=== PATIENT | female | born 1970 | race Caucasian/White ===

== ENCOUNTER 2017-09-08 21:30 | Emergency (ER) | payer OTHER ==
[~2017-09-08] VITALS: Ht 167.6 cm; Wt 77.3 kg
[~2017-09-08 21:30] MED LIST: AMLO-511 PO; ASPI-1182 PO; GLIP10 PO; INSLAN SQ; INSU100V SQ; LEVO175T4 PO; LISI-662 PO; OMEP20 PO; PRAV10TA39 PO
[2017-09-08 21:48] LABS: GLUCOSE,POINT OF CARE 261 MG/DL (70-110)
[2017-09-08 23:45] LABS: BASOPHILS # (AUTO) 0.08 K/uL (0.00-0.20); BASOPHILS % (AUTO) 1.3 % (0.0-2.0); EOSINOPHILS # (AUTO) 0.48 K/uL (0.00-0.70); EOSINOPHILS % (AUTO) 7.91 % (1.0-6.0); HEMATOCRIT 35.5 % (36-46); HEMOGLOBIN 11.8 g/dL (12.0-16.0); LYMPHOCYTES # (AUTO) 1.3 K/uL (1.0-4.8); MEAN CORPUSCULAR HEMOGLOBIN 32.9 pg (26.0-34.0); MEAN CORPUSCULAR HGB CONC 33.1 G/dL (31.0-37.0); MEAN CORPUSCULAR VOLUME 99 fL (80-100); MONOCYTES # (AUTO) 0.5 K/uL (0.1-1.0); MONOCYTES % (AUTO) 8.2 % (2.0-9.0); NEUTROPHILS # (AUTO) 3.8 K/uL (1.8-7.7); NEUTROPHILS % (AUTO) 61.7 % (40.0-70.0); PLATELET COUNT (AUTO) 229 K/uL (150-450); RED BLOOD CELL COUNT(AUTO) 3.58 MIL/uL (4.00-5.20); RED CELL DISTRIBUTION WIDTH 16.6 % (11.5-14.5)
[2017-09-08 23:55] LABS: CALCIUM, TOTAL 8.6 mg/dL (8.8-10.5); CREATININE 4.67 mg/dL (0.60-1.30); POTASSIUM 4.4 mmol/L (3.5-5.1)
[2017-09-09 00:01] LABS: ALBUMIN 3.8 g/dL (3.4-5.0); BILIRUBIN,TOTAL 0.3 mg/dL (0.1-1.0); TOTAL PROTEIN, SERUM 8.2 g/dL (6.4-8.2)
[2017-09-09] MEDS ORDERED: HYDROCODONE/ACETAMINOPHEN 5-325 MG TABLET PO ONE (00:45)
[2017-09-09] MEDS ORDERED: INSLAN SQ (00:49)
[2017-09-09] MEDS ORDERED: LISI-622 PO (00:54)
[2017-09-09] MEDS ORDERED: CALC-1038 PO (00:54)
[2017-09-09] MEDS ORDERED: LURA40 PO (00:55)
[2017-09-09 01:29] VITALS: BP 138/80
== END 2017-09-09 01:36 | disposition home or self-care (01) ==
LOC: EMS 21:32
DX: I12.0 Hypertensive chronic kidney disease with stage 5 chronic kidney disease or end stage renal disease (principal); R60.0 Localized edema; E11.22 Type 2 diabetes mellitus with diabetic chronic kidney disease; N18.6 End stage renal disease; E11.65 Type 2 diabetes mellitus with hyperglycemia; I87.8 Other specified disorders of veins; I87.2 Venous insufficiency (chronic) (peripheral); Z99.2 Dependence on renal dialysis
CPT/HCPCS: 82962; 99284

== ENCOUNTER 2017-10-21 06:47 | Emergency (ER) | payer OTHER ==
[~2017-10-21] VITALS: Ht 152.4 cm; Wt 68.2 kg
[~2017-10-21 06:47] MED LIST changes: +CALC-1038 PO; +LISI-622 PO; +LURA40 PO
[2017-10-21 07:12] LABS: GLUCOSE,POINT OF CARE 336 MG/DL (70-110)
[2017-10-21] MEDS ORDERED: MORPHINE SULFATE 4 MG/ML SYRINGE IVP ONE (07:15)
[2017-10-21] MEDS ORDERED: CloNIDine HCL 0.2 MG TABLET PO ONE (07:15)
[2017-10-21] MEDS ORDERED: ONDANSETRON HCL 4 MG/2 ML VIAL IVP ONE (07:15)
[2017-10-21 07:35] LABS: BASOPHILS # (AUTO) 0.01 K/uL (0.00-0.20); BASOPHILS % (AUTO) 0.2 % (0.0-2.0); EOSINOPHILS # (AUTO) 0.19 K/uL (0.00-0.70); HEMATOCRIT 30.8 % (36-46); HEMOGLOBIN 9.9 g/dL (12.0-16.0); LYMPHOCYTES # (AUTO) 1.1 K/uL (1.0-4.8); LYMPHOCYTES % (AUTO) 22.2 % (22.0-44.0); MEAN CORPUSCULAR HEMOGLOBIN 33.4 pg (26.0-34.0); MEAN CORPUSCULAR HGB CONC 32.1 G/dL (31.0-37.0); MEAN CORPUSCULAR VOLUME 104 fL (80-100); MONOCYTES # (AUTO) 0.5 K/uL (0.1-1.0); MONOCYTES % (AUTO) 8.9 % (2.0-9.0); NEUTROPHILS # (AUTO) 3.4 K/uL (1.8-7.7); NEUTROPHILS % (AUTO) 65.1 % (40.0-70.0); PLATELET COUNT (AUTO) 149 K/uL (150-450); RED BLOOD CELL COUNT(AUTO) 2.95 MIL/uL (4.00-5.20); RED CELL DISTRIBUTION WIDTH 17.4 % (11.5-14.5); WHITE BLOOD COUNT (AUTO) 5.2 K/uL (4.5-11.0)
[2017-10-21 07:46] LABS: CREATININE 4.27 mg/dL (0.60-1.30); POTASSIUM 4.9 mmol/L (3.5-5.1)
[2017-10-21 07:52] LABS: ALBUMIN 3.4 g/dL (3.4-5.0); BILIRUBIN,TOTAL 0.7 mg/dL (0.1-1.0); TOTAL PROTEIN, SERUM 8.3 g/dL (6.4-8.2)
[2017-10-21] MEDS ORDERED: INSULIN REGULAR, HUMAN 100 UNITS/ML IVP ONE (08:15)
[2017-10-21 09:01] LABS: GLUCOSE,POINT OF CARE 306 MG/DL (70-110)
[2017-10-21 09:02] VITALS: BP 152/88
== END 2017-10-21 09:09 | disposition home or self-care (01) ==
LOC: EMS 06:48
DX: M54.5 Low back pain (principal); E11.65 Type 2 diabetes mellitus with hyperglycemia; I12.0 Hypertensive chronic kidney disease with stage 5 chronic kidney disease or end stage renal disease; E11.22 Type 2 diabetes mellitus with diabetic chronic kidney disease; N18.6 End stage renal disease; E11.621 Type 2 diabetes mellitus with foot ulcer; G89.29 Other chronic pain; L97.419 Non-pressure chronic ulcer of right heel and midfoot with unspecified severity; Z99.2 Dependence on renal dialysis; Z79.4 Long term (current) use of insulin
CPT/HCPCS: 36415; 80053; 82948; 82962; 85025; 96374; 96375; 99285; J1815; J2270; J2405